=== PATIENT | male | born 1965 | race Caucasian/White ===

== ENCOUNTER → 2022-07-18 | Outpatient (CLI) | payer OTHER ==
[~2022-07-18] MED LIST: ACID REDUCER 1150 MG PO; BISA5EC; CALCA500CH; CELE200 PO; CYCL10 PO; ERGO400; Glucosamine &1 EACH; HYDACE5325 PO; MAGCHL64ER; Multiple Vitam1 EAC1; NAPR500 PO
== END ==
LOC: LAB 08:32 → PLD 08:32 → LAB SHORT 08:32
DX: L60.2 Onychogryphosis (principal); B35.2 Tinea manuum
CPT/HCPCS: 88305; 88312

== ENCOUNTER → 2023-01-09 | Outpatient (CLI) | payer OTHER | END | disposition home or self-care (01) | LOC: LAB SHORT 08:10 → LAB 08:10 | PROVIDERS: Physician Assistant | DX: G89.4 Chronic pain syndrome (principal) | CPT/HCPCS: G0480 ==

== ENCOUNTER 2024-08-07 11:38 | Day surgery (SDC) | payer OTHER ==
[~2024-08-07] VITALS: Ht 182.9 cm; Wt 82.7 kg
[~2024-08-07 11:38] MED LIST changes: +Bupivacaine 0.5% W/EPI 1:200000 SDV 30 ML Vial ONE; +Lactated Ringer's 1,000 ML IV ONE
[2024-08-07] MEDS ORDERED: Amlodipine Bes2.5 MG PO (12:30)
[2024-08-07] MEDS ORDERED: Benicar Hct 401 EACH PO (12:36)
[2024-08-07] MEDS ORDERED: TAMS.4ER PO (12:36)
[2024-08-07] MEDS ORDERED: Lactated Ringer's 1,000 ML IV ONE ×2 (12:54→14:20)
[2024-08-07] MEDS ORDERED: FentaNYL Citrate 50 MCG/ML 2 ML Injection ONE ×2 (13:00→14:35)
[2024-08-07] MEDS ORDERED: propofoL 20 ML IV ONE (13:00)
[2024-08-07] MEDS ORDERED: CeFAZolin Sodium 2,000 MG VIAL ONE (13:15)
--- NOTE | 2024-08-07 14:32 | NUR ---
08/07/24 1432 LANA MARQUES SORE THROAT. PLACED ON O2 VIA FACE TENT O2 SAT STARTED TO DIP
--- NOTE | 2024-08-07 14:58 | NUR ---
08/07/24 2316 LANA MARQUES WORKING ON GETTING PAIN DOWN. LITTLE LIGHT-HEADED BUT NO NAUSEA. PAIN IN ARCH OF HIS FOOT. TOTAL FENTN 62.5MCG TOTAL NO LONGER ON O2
[2024-08-07] MEDS ORDERED: HYDROmorphone HCl/Pf 1MG SYR ONE (15:03)
[2024-08-07] MEDS ORDERED: Ketorolac Tromethamine 30mg Vial ONE (15:07)
[2024-08-07] MEDS ORDERED: Ondansetron HCl 2 MG / ML 2ML Vial ONE (15:07)
[2024-08-07] MEDS ORDERED: Dexamethasone Sod Phos 10 MG/ML 1ML VIAL ONE (15:07)
[2024-08-07] MEDS ORDERED: HYDROcodone 5-APAP 325 TAB ONE (15:14)
[2024-08-07 15:21] VITALS: BP 147/87
--- NOTE | 2024-08-07 16:12 | NUR ---
08/07/24 1612 LANA MARQUES PT CAME OUT OF OR WITH 2ND L OF FLUIDS HANGING.
== END 2024-08-07 16:00 | disposition home or self-care (01) ==
LOC: ORSCSDS 11:38
PROVIDERS: Podiatrist Foot & Ankle Surgery
PROC: 0SGL04Z Fusion of Left Tarsometatarsal Joint with Internal Fixation Device, Open Approach (ICD-10-PCS; principal; 2024-08-07 13:00)
DX: M21.612 Bunion of left foot (principal); M20.42 Other hammer toe(s) (acquired), left foot; I10 Essential (primary) hypertension; K21.9 Gastro-esophageal reflux disease without esophagitis; Z79.899 Other long term (current) drug therapy
CPT/HCPCS: A9270; C1713; J0690; J1100; J1171; J1885; J2405; J2704; J3010; J7120